=== PATIENT | male | born 1980 | race American Indian/Alaskan Native ===

== ENCOUNTER 2017-01-07 15:19 | Outpatient (CLI) | payer OTHER ==
--- NOTE | 2017-01-07 16:08 | XRay Report ---
PA and lateral chest: Right chest pain; right thoracentesis. There is no pneumothorax. There is mild hazy blunting of the right costophrenic angle laterally. The lungs are clear. The mediastinal contour is unremarkable. Impression: There may be a minimal amount of right pleural fluid remaining. No other findings.
== END 2017-01-07 15:20 | disposition home or self-care (01) ==
LOC: XRAY 15:19
PROVIDERS: ATTEND Internal Medicine
DX: Z02.71 Encounter for disability determination (principal); R07.81 Pleurodynia; F17.200 Nicotine dependence, unspecified, uncomplicated; Z98.890 Other specified postprocedural states
CPT/HCPCS: 71020